=== PATIENT | female | born 1950 | race Caucasian/White ===

== ENCOUNTER → 2016-11-10 | Outpatient (CLI) | payer MEDICARE ==
[~2016-11-10] MED LIST: AMLODIPINE BESY10 MG PO; AZOR 10-40 MG1 UDTAB PO; BENADRYL25 M1 PO; FAMOTIDINE PO; FLOVENT DI50 MCG/DIS IH; LOTREL 10/40 MG1 CAP PO; MELOXICAM15 MG DOB; MOBIC15 MG PO; PREDNISONE PO; VICOPROFEN 200-1 TAB PO; ZETIA PO
--- NOTE | ~2016-11-10 | US5 ---
[facility] A Service of [facility] RADIOLOGY TEXT RESULTS PATIENT: DINO SHINE LOCATION: SGUS : 46 UNIT #: [id number] AGE: [address]: Carol Bustamante MD SEX: F ORDER DR: [id number] [address] [address] [id number] O MR#: [id number] Acc #: [id number] NAME: DINO SHINE : 1950 SEX: F STUDY DATE/TIME: 11/10/2016 8:44 UNIT: SGUS ROOM: STUDY DESCRIPTION: US Abdominal Complete Attending Physician: Carol Butsamante M.D. Referring Physician: Carol Bustamante M.D. Ordering Physician: Carol Bustamante M.D. Primary Care Physician: Carol Bustamante M.D. MEDICAL IMAGING REPORT This report is preliminary unless electronic signature is present. EXAM Abdominal ultrasound, complete, 11/10/2016. HISTORY Cramping abdomen pain off and on for 2 years. FINDINGS The liver demonstrates an increase in echotexture with attenuation of the ultrasound beam, characteristic of fatty infiltration. No cystic or solid mass lesions were seen in the liver. The intra- and extrahepatic bile ducts are not dilated. The gallbladder is surgically absent, as per patient history. The common duct measures 3 mm. The pancreas and spleen are normal. The spleen measures 10.6 cm in greatest diameter. The visualized portions of the abdominal aorta and inferior vena cava are within normal limits. The kidneys are normal bilaterally. IMPRESSION 1. Fatty infiltration of the liver. 2. Surgical absence of the gallbladder. Dictated by... Clay Valdes M.D. THIS IS AN ELECTRONICALLY VERIFIED REPORT Clay Valdes M.D. at 11/11/2016 8:22 AM KEANU/derek TD: 11/10/2016 19:06 JOB #: [id number] [facility] A Service of [facility] RADIOLOGY TEXT RESULTS PATIENT: DINO SHINE LOCATION: [facility] : 48 UNIT #: [id number] AGE: [address]: Carol Bustamante MD SEX: F ORDER DR: MEDICAL IMAGING REPORT Page 1 of 1
== END | disposition home or self-care (01) ==
LOC: SGUS 08:21
DX: R10.9 Unspecified abdominal pain (principal); K76.0 Fatty (change of) liver, not elsewhere classified; Z90.49 Acquired absence of other specified parts of digestive tract
CPT/HCPCS: 76700

== ENCOUNTER → 2017-04-06 | Outpatient (CLI) | payer OTHER ==
--- NOTE | ~2017-04-06 | PFT ---
[id number] [facility] [address]. [place], [place] [address] [id number] O MR#: [id number] NAME: CASE, DINO Archuleta ROOM: SEX: F STUDY DATE/TIME: 04/06/2017 : 1950 AGE: 66 STUDY DESCRIPTION: Attending Physician: Carol Bustamante M.D. Referring Physician: Carol Bustamante M.D. Primary Care Physician: Carol Bustamante M.D. PULMONARY DIAGNOSTIC REPORT EXAM PFT. FINDINGS Spirometry suggests a moderate restrictive defect. There is a significant response to bronchodilators of 15% yielding an FEV1 of 1.63 liters, 65% of predicted. Flow volume loop suggests an obstructive defect. Lung volumes reveal air trapping and a reduced ERV consistent with obesity. Diffusion capacity is low-normal. Findings suggest airways disease, such as asthma, with a contribution of obesity affecting the results. Dictated by... Steve White M.D. SOLIS/lucien TD: 04/07/2017 08:09 JOB #: [id number] PULMONARY DIAGNOSTIC REPORT Page 1 of 1
== END | disposition home or self-care (01) ==
LOC: CRC 10:42
DX: R06.02 Shortness of breath (principal)
CPT/HCPCS: 94060; 94726; 94729

== ENCOUNTER → 2017-04-21 | Outpatient (CLI) | payer MEDICARE ==
--- NOTE | ~2017-04-21 | CT2 ---
[facility] A Service of [facility] RADIOLOGY TEXT RESULTS PATIENT: DINO SHINE LOCATION: [facility] : 46 UNIT #: [id number] AGE: [address]: Michael Cheng MD SEX: F ORDER DR: [id number] [address] [address] [id number] O MR#: [id number] Acc #: [id number] NAME: DINO SHINE : 1950 SEX: F STUDY DATE/TIME: 04/21/2017 12:33 UNIT: [facility] ROOM: STUDY DESCRIPTION: CT Abd and Pelv W Cont Attending Physician: Michael Cheng M.D. Referring Physician: Michael Cheng M.D. Ordering Physician: Michael Cheng M.D. Primary Care Physician: Carol Bustamante M.D. MEDICAL IMAGING REPORT This report is preliminary unless electronic signature is present. EXAM CT abdomen and pelvis with contrast, 04/21 COMPARISON 05/31/2013 INDICATIONS Elevated white blood cell count and midline abdominal pain for 2 years. Symptoms started after hernia operation. TECHNIQUE Axial 5-mm images were obtained through the abdomen and pelvis then the patient was given 100 mL of Isovue-370. She was also given oral contrast. Sagittal and coronal reconstructions were generated. This CT exam was performed with one or more of the following radiation dose reduction techniques: Automatic exposure control, adjustment of mA and/or kV according to patient size, and iterative reconstruction. FINDINGS Lung bases are clear. The gallbladder has been removed. There is some calcified pleural plaque formation along the right hemidiaphragm; this has a benign appearance. The liver, spleen, pancreas, adrenal glands and kidneys are normal. The aorta is normal in size and there is no adenopathy. The bowel, including the appendix, appears normal. The uterus has a shape suggesting that it is divided into two upper uterine compartments, and the one on the right has abnormally thickened low-density material within it measuring up to 2.2 cm in thickness. The adnexal regions appear normal. The bladder is normal. The bones show mild degenerative changes. IMPRESSION 1. The appendix is normal. [facility] A Service of [facility] RADIOLOGY TEXT RESULTS PATIENT: DINO SHINE LOCATION: [facility] : 46 UNIT #: [id number] AGE: [address]: Michael Cheng MD SEX: F ORDER DR: 2. The gallbladder has been removed. 3. The uterus has an abnormal appearance. 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 This is abnormal in a 66-year-old. Correlation with pelvic ultrasound is recommended. 4. The ovaries appear normal. Dictated by... Miky Sprague M.D. THIS IS AN ELECTRONICALLY VERIFIED REPORT Miky Sprague M.D. at 04/22/2017 3:58 PM YINKA/feliciano TD: 04/22/2017 08:31 JOB #: [id number] MEDICAL IMAGING REPORT Page 1 of 1
[2017-04-21 11:15] LABS: POC - CREATININE 0.91 mg/dL (0.44-1.03); POC - GFR >60.0 mL/min (>60)
== END | disposition home or self-care (01) ==
LOC: SCT 11:00
PROVIDERS: Internal Medicine Medical Oncology
DX: D72.829 Elevated white blood cell count, unspecified (principal); N85.8 Other specified noninflammatory disorders of uterus
CPT/HCPCS: 74177; 82565; Q9967